=== PATIENT | female | born 1950 | race African-American/Black ===

== ENCOUNTER 2018-04-11 22:37 | Emergency (ER) | payer MEDICARE ==
[~2018-04-11] VITALS: Ht 157.5 cm; Wt 91.0 kg
[2018-04-12 01:47] VITALS: BP 127/84
[2018-04-12] MEDS ORDERED: KETOROLAC 30MG/ML VIAL IM ONE (02:00)
[2018-04-12] MEDS ORDERED: CYCLOBENZAPRINE 10MG TABLET PO ONE (02:00)
== END 2018-04-12 03:29 | disposition home or self-care (01) ==
LOC: ER 22:37
DX: M25.512 Pain in left shoulder (principal); E11.9 Type 2 diabetes mellitus without complications; I10 Essential (primary) hypertension; E03.9 Hypothyroidism, unspecified; Z88.1 Allergy status to other antibiotic agents; Z88.8 Allergy status to other drugs, medicaments and biological substances; M19.90 Unspecified osteoarthritis, unspecified site
CPT/HCPCS: 96372; 99283; J1885